=== PATIENT | male | born 1985 | race Two or more races ===

== ENCOUNTER → 2024-09-18 | Outpatient (CLI) | payer OTHER | END | disposition home or self-care (01) | LOC: LAB 08:41 | PROVIDERS: ATTEND Dermatology | DX: D48.5 Neoplasm of uncertain behavior of skin (principal) ==

== ENCOUNTER 2025-02-16 07:07 | Outpatient (CLI) | payer OTHER ==
[2025-02-16 07:49] LABS: Urine Protein, UAD Negative (Negative)
[2025-02-16 07:51] LABS: Potassium 4.2 mmol/L (3.5-5.1); Sodium 144 mmol/L (136-145)
[2025-02-16 07:52] LABS: Anion Gap 9 (5-15); Calcium 9.2 mg/dL (8.7-10.4); Carbon Dioxide 26 mmol/L (20-31); Chloride 109 mmol/L (98-107)
[2025-02-16 07:57] LABS: BUN/Creatinine Ratio 16.2 (10.0-20.0); Blood Urea Nitrogen 16 mg/dL (9-23); Glucose 97 mg/dL (74-106); Triglycerides 136 mg/dL (< 150)
[2025-02-16 07:59] LABS: Cholesterol 169 mg/dL (< 200)
[2025-02-16 08:00] LABS: HDL Cholesterol 37 mg/dL (40-59)
== END 2025-02-16 17:00 | disposition home or self-care (01) ==
LOC: LAB 07:07
PROVIDERS: ATTEND Internal Medicine
DX: E78.2 Mixed hyperlipidemia (principal); R82.90 Unspecified abnormal findings in urine; Z82.49 Family history of ischemic heart disease and other diseases of the circulatory system
CPT/HCPCS: 36415; 80048; 80061; 81001